=== PATIENT | female | born 1995 | race African-American/Black ===

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

== ENCOUNTER 2017-03-10 18:16 | Emergency (ER) | payer BC ==
[2017-03-10 18:44] VITALS: BP 100/61
--- NOTE | 2017-03-10 19:45 | UC ---
Homer Gupta Abhishek, scribed for Jose Luis Lewis MD on 03/10/17 at 1918 . Complaint Female HPI - HPI Summary HPI Summary: Pt is a 21 y/o F who presents to [facility] with suspected UTI. Pt reports she has been experiencing dysuria and back pain since this morning at approximately 0700. Back pain is in the lumbar back and is currently moderate, ranked 6/10. Treated with Azo PEANUT SORTER. Sx aggravated and alleviated by nothing. Additionally c/o fever, chills, and mild suprapubic abdominal pain. Denies vaginal discharge, diarrhea. PHx UTIs - current sx are similar to prior instances of UTI which were treated with bactrim. . LNMP 3 weeks ago and she is not concerned about STI. - History Of Current Complaint Chief Complaint: UCGU Stated Complaint: URINARY Time Seen by Provider: 03/10/17 19:12 Hx Obtained From: Patient Hx Last Menstrual Period: 3 wks ago Onset/Duration: Lasting Hours, Still Present Severity Currently: Moderate Pain Intensity: 6 Pain Scale Used: 0-10 Numeric Aggravating Factor(s): Nothing Alleviating Factor(s): Nothing Associated Signs And Symptoms: Positive: Back Pain Related Hx: Similar Episode/Dx as: - Prior UTIs - Allergies/Home Medications Allergies/Adverse Reactions: Allergies Allergy/AdvReac Type Severity Reaction Status Date / Time No Known Allergies Allergy Unverified 03/10/17 18:44 PMH/Surg Hx/FS Hx/Imm Hx - Additional Past Medical History Additional PMH: POSITIVE: Anemia NEGATIVE: HTN, DM, COPD, asthma GI/ History: Other Other GI/ History: UTI - Surgical History Surgical History: None - Family History Known Family History: Positive: Other - Anemia, thalassemia Negative: Cardiac Disease, Hypertension, Diabetes - Social History Alcohol Use: Occasionally Substance Use Type: Marijuana Smoking Status (MU): Current Some Day Smoker Type: Cigarettes Amount Used/How Often: "I don't know" Length of Time of Smoking/Using Tobacco: "a couple of months" Have You Smoked in the Last Year: Yes - Immunization History Most Recent Influenza Vaccination: Vaccination Up to Date: Yes Review of Systems Constitutional: Fever, Chills Skin: Negative Eyes: Negative ENT: Negative Respiratory: Negative Cardiovascular: Negative Gastrointestinal: Abdominal Pain - mild suprapubic Genitourinary: Dysuria Motor: Negative Neurovascular: Negative Musculoskeletal: Other: - Lumbar back pain Neurological: Negative Psychological: Negative All Other Systems Reviewed And Are Negative: Yes - Comments Additional Review of Systems Comments: NEGATIVE: Vaginal discharge, diarrhea. Physical Exam Triage Information Reviewed: Yes Vital Signs: Initial Vital Signs Temp 99.6 F 03/10/17 18:40 Pulse 79 03/10/17 18:40 Resp 18 03/10/17 18:40 BP 100/61 03/10/17 18:40 Pulse Ox 99 03/10/17 18:40 Vital Signs Reviewed: Yes - Additional Comments General: mildly ill appearing, mild pain distress Skin: warm, color reflects adequate perfusion, dry Head: normal Eyes: EOMI, JACKY ENT: normal Neck: supple, nontender Respiratory: CTA, breath sounds present Cardiovascular: RRR Abdomen: soft, mild suprapubic tenderness with no rebound Bowel: present Musculoskeletal: strength/ROM intact, tender over bilateral flanks in the back Neurological: normal, sensory/motor intact, A&O x3 Psychological: affect/mood appropriate Complaint Female Dx - Course Course Of Treatment: Pt medications reviewed. DENIES C/O STI. HAS UTI SX. UNABLE TO RUN UA DUE TO AZO USE. RX BACTRIM PO BID X 10 DAYS. URINE CX SENT. F/ U PMD. RETURN IF WORSE. - Differential Dx/Diagnosis Provider Diagnoses: DYSURIA AND B/L FLANK PAIN Discharge - Discharge Plan Condition: Stable Disposition: HOME Prescriptions: Sulfamethox/Trimethoprim DS* [Bactrim DS 800/160 TAB*] 1 tab PO BID #20 tab Patient Education Materials: Urinary Tract Infection in Women (ED) Referrals: Cortez Palumbo MD [Primary Care Provider] - Additional Instructions: FOLLOW UP WITH YOUR DOCTOR. GET RECHECKED FOR ANY WORSENING OF YOUR CONDITION OR QUESTIONS OR CONCERNS. The documentation as recorded by the Homer mejia Abhishek accurately reflects the service I personally performed and the decisions made by me, Jose Luis Lewis MD.
== END 2017-03-10 19:27 | disposition home or self-care (01) ==
LOC: UCEAST 18:16
DX: R30.0 Dysuria (principal); D64.9 Anemia, unspecified; F17.200 Nicotine dependence, unspecified, uncomplicated; R10.9 Unspecified abdominal pain
CPT/HCPCS: 81025; 87077; 87086; 99212; G0463

== ENCOUNTER 2017-03-11 01:28 | Observation (INO) | payer BC, OTHER ==
[2017-03-11] MEDS ORDERED: NS 0.9% 1000 ML* 2,000 ML IV ONE (01:56)
[2017-03-11 02:19] LABS: Hematocrit 39 % (35-47); Mean Corpuscular HGB Conc 34 g/dl (31-36); Mean Corpuscular Hemoglobin 29 pg (27-31); Mean Corpuscular Volume 86 fL (80-97); Mean Platelet Volume 9 um3 (7.4-10.4); Red Blood Count 4.49 10^6/ul (4.0-5.4); Red Cell Distribution Width 15 % (10.5-15); White Blood Count 13.2 10^3/ul (3.5-10.8)
[2017-03-11 02:32] LABS: ALT 49 U/L (7-52); AST 58 U/L (13-39); Albumin 4.7 g/dL (3.2-5.2); Alkaline Phosphatase 77 U/L (34-104); Anion Gap 10 mmol/L (2-11); BUN/Creatinine Ratio 11.1 (8-20); Blood Urea Nitrogen 12 mg/dL (6-24); C Reactive Protein 14.52 mg/L (< 5.00); CO2 Carbon Dioxide 23 mmol/L (22-32); Calcium 9.9 mg/dL (8.6-10.3); Chloride 103 mmol/L (101-111); EGFR African American 84.1 (>60); EGFR Non-African American 65.4 (>60); Globulin 2.8 g/dL (2-4); Glucose 106 mg/dL (70-100); Lipase 16 U/L (11.0-82.0); Potassium 3.4 mmol/L (3.5-5.0); Sodium 136 mmol/L (133-145); Total Protein 7.5 g/dL (6.4-8.9)
[2017-03-11] MEDS ORDERED: cefTRIAXone VIAL(*) 1,000 MG VIAL IVPB ONE (03:01)
[2017-03-11] MEDS ORDERED: Ondansetron INJ* 2 MG/ML VIAL IV ONE (03:03)
[2017-03-11] MEDS ORDERED: Acetaminophen TAB* 325 MG ONE (03:22)
[2017-03-11] MEDS ORDERED: Acetaminophen TAB* 325 MG PO ONE (03:25)
[2017-03-11] MEDS ORDERED: Iohexol 300* (CONTRAST) 10 ML SDV IV ONE (03:43)
[2017-03-11 04:51] LABS: Urine Bacteria Absent (Absent); Urine Bilirubin Negative (Negative); Urine Glucose Negative (Negative); Urine Nitrite Positive (Negative)
[2017-03-11] MEDS: NS 0.9% 1000 ML* 1,000 ML IV SCH ×2 (06:41→18:07)
--- NOTE | 2017-03-11 06:54 | ED ---
Jonah Gupta Benjamin, scribed for Vitor South MD on 03/11/17 at 0250 . GI/ HPI - HPI Summary HPI Summary: 21yo female who was seen at earlier today for bilateral flank pain. Pt was dc ed with abx awfter UTI was found. Symptoms worsened and pt developed fever. Pt was still in pain, felt dizzy and had vomited at home after discharge, so returns to ED. PMHx of anemia. - History of Current Complaint Chief Complaint: EDFlankPain Time Seen by Provider: 03/11/17 01:55 Stated Complaint: POSS KIDNEY INFECTION/DIZZY Hx Obtained From: Patient, Family/Corporate Quality Engineer - father Hx Last Menstrual Period: 3 wks ago Onset/Duration: Started Days Ago - 1 day ago, Still Present Timing: Constant Severity: Severe Current Severity: Severe Pain Intensity: 9 Location of Pain: Flank - bilateral Associated Signs and Symptoms: Positive: Back Pain, Dizziness, Nausea, Vomiting , Fever, Flank Pain - Allergy/Home Medications Allergies/Adverse Reactions: Allergies Allergy/AdvReac Type Severity Reaction Status Date / Time No Known Allergies Allergy Unverified 03/10/17 18:44 PMH/Surg Hx/FS Hx/Imm Hx Endocrine/Hematology History: Reports: Hx Anemia Denies: Hx Diabetes, Hx Thyroid Disease Cardiovascular History: Denies: Hx Hypertension Respiratory History: Denies: Hx Asthma, Hx Chronic Obstructive Pulmonary Disease (COPD) GI History: Denies: Hx Ulcer Musculoskeletal History: Reports: Other Musculoskeletal History - osteopenia Denies: Hx Rheumatoid Arthritis, Hx Osteoporosis Psychiatric History: Reports: Hx Eating Disorder - anorexia Infectious Disease History: No Infectious Disease History: Denies: Hx Clostridium Difficile, Hx Hepatitis, Hx Human Immunodeficiency Virus (HIV), Hx of Known/Suspected MRSA, Hx Shingles, Hx Tuberculosis, Hx Known/ Suspected VRE, Hx Known/Suspected VRSA, History Other Infectious Disease, Traveled Outside the [place] in Last 30 Days - Family History Known Family History: Positive: Other - Anemia, thalassemia Negative: Cardiac Disease, Hypertension, Diabetes Family History: no reported medical, cardio, vascular issues in family lineage - Social History Occupation: Student Alcohol Use: Occasionally Hx Substance Use: Yes Substance Use Type: Reports: Marijuana Hx Tobacco Use: Yes Smoking Status (MU): Current Some Day Smoker Type: Cigarettes Amount Used/How Often: "I don't know" Length of Time of Smoking/Using Tobacco: "a couple of months" Have You Smoked in the Last Year: Yes Review of Systems All Other Systems Reviewed And Are Negative: Yes Physical Exam - Summary Physical Exam Summary: Appearance: Ill-Appearing, in moderate pain distress, well nourished. Positive rigors. Skin: warm to touch, skin color reflects adequate perfusion, dry, no acute skin lesions Head Exam: Normal Eye Exam: EOMI, PERRL, conjunctiva clear ENT: pharynx nml, TM nml Neck exam: Supple, nontender Respiratory Exam: CTA, breath sounds present, no rales, no rhonchi, no wheezes Cardiovascular Exam: Tachycardia, S1, S2, No Murmur, No rub, No gallops, pulses symmetrical Abdomen Description: Diffuse abdominal tenderness. Bilateral flank tenderness. Soft, no guarding, no rebound, nondistended, no organomegaly Bowel Sounds: Present Musculoskeletal: Normal, Strength/ROM Intact Neurological Exam: nml, sens/motor intact, A&Ox3, no cerebellar dysfunction Psychological Exam: affect/mood appropriate Triage Information Reviewed: Yes Vital Signs On Initial Exam: Initial Vitals Temp Pulse Resp BP Pulse Ox 100.5 F 116 20 82/49 98 03/11/17 01:49 03/11/17 01:49 03/11/17 01:49 03/11/17 01:49 03/11/17 01:49 Vital Signs Reviewed: Yes - [place] Coma Scale Coma Scale Total: 15 Diagnostics - Vital Signs Vital Signs Temp Pulse Resp BP Pulse Ox 03/11/17 01:49 100.5 F 116 20 82/49 98 - Laboratory Lab Results: Lab Results 03/11/17 03/11/17 03/11/17 Range/Units 02:02 02:02 02:02 WBC 13.2 H (3.5-10.8) 10^3/ul RBC 4.49 (4.0-5.4) 10^6/ul Hgb 13.0 (12.0-16.0) g/dl Hct 39 (35-47) % MCV 86 (80-97) fL MCH 29 (27-31) pg MCHC 34 (31-36) g/dl RDW 15 (10.5-15) % Plt Count 322 (150-450) 10^3/ul MPV 9 (7.4-10.4) um3 INR (Anticoag Therapy) 0.97 (0.89-1.11) Sodium 136 (133-145) mmol/L Potassium 3.4 L (3.5-5.0) mmol/L Chloride 103 (101-111) mmol/L Carbon Dioxide 23 (22-32) mmol/L Anion Gap 10 (2-11) mmol/L BUN 12 (6-24) mg/dL Creatinine 1.08 H (0.51-0.95) mg/dL Est GFR ( Amer) 84.1 (>60) Est GFR (Non-Af Amer) 65.4 (>60) BUN/Creatinine Ratio 11.1 (8-20) Glucose 106 H (70-100) mg/dL Lactic Acid (0.5-2.0) mmol/L Calcium 9.9 (8.6-10.3) mg/dL Total Bilirubin 0.80 (0.2-1.0) mg/dL AST 58 H (13-39) U/L ALT 49 (7-52) U/L Alkaline Phosphatase 77 (34-104) U/L C-Reactive Protein 14.52 H (< 5.00) mg/L Total Protein 7.5 (6.4-8.9) g/dL Albumin 4.7 (3.2-5.2) g/dL Globulin 2.8 (2-4) g/dL Albumin/Globulin Ratio 1.7 (1-3) Lipase 16 (11.0-82.0) U/L Beta HCG, Quant < 0.60 mIU/mL 03/11/17 Range/Units 02:02 WBC (3.5-10.8) 10^3/ul RBC (4.0-5.4) 10^6/ul Hgb (12.0-16.0) g/dl Hct (35-47) % MCV (80-97) fL MCH (27-31) pg MCHC (31-36) g/dl RDW (10.5-15) % Plt Count (150-450) 10^3/ul MPV (7.4-10.4) um3 INR (Anticoag Therapy) (0.89-1.11) Sodium (133-145) mmol/L Potassium (3.5-5.0) mmol/L Chloride (101-111) mmol/L Carbon Dioxide (22-32) mmol/L Anion Gap (2-11) mmol/L BUN (6-24) mg/dL Creatinine (0.51-0.95) mg/dL Est GFR ( Amer) (>60) Est GFR (Non-Af Amer) (>60) BUN/Creatinine Ratio (8-20) Glucose (70-100) mg/dL Lactic Acid 2.5 H* (0.5-2.0) mmol/L Calcium (8.6-10.3) mg/dL Total Bilirubin (0.2-1.0) mg/dL AST (13-39) U/L ALT (7-52) U/L Alkaline Phosphatase (34-104) U/L C-Reactive Protein (< 5.00) mg/L Total Protein (6.4-8.9) g/dL Albumin (3.2-5.2) g/dL Globulin (2-4) g/dL Albumin/Globulin Ratio (1-3) Lipase (11.0-82.0) U/L Beta HCG, Quant mIU/mL Result Diagrams: 03/11/17 02:02 03/11/17 02:02 Lab Statement: Any lab studies that have been ordered have been reviewed, and results considered in the medical decision making process. - CT CT A/P CT Interpretation Completed By: Radiologist - Small pericholecystic fluid, no renal findings Re-Evaluation - Re-Evaluation First Eval Re-Evaluation Time: 04:33 Change: Improved - Pt states pain has improved, pt looks much better, however still reports dizziness. GIGU Course/Dx - Course Course Of Treatment: Reviewed pts medication and allergy lists. Blood pressure noted. - Diagnoses Provider Diagnoses: UTI (urinary tract infection), Sepsis Discharge - Discharge Plan Condition: Fair Disposition: ADMITTED TO [facility] The documentation as recorded by the Jonah mejia Benjamin accurately reflects the service I personally performed and the decisions made by Akosua castillo Afoma Frances, MD.
[2017-03-11] MEDS ORDERED: oxyCODONE/Acetamin 5/325 MG* TAB PO PRN (07:55)
[2017-03-11] MEDS ORDERED: Ondansetron INJ* 2 MG/ML VIAL IV PRN (07:55)
[2017-03-11] MEDS ORDERED: NS 0.9% 1000 ML* 1,000 ML IV SCH (08:00)
--- NOTE | 2017-03-11 08:15 | RAD ---
CLINICAL HISTORY: Flank pain COMPARISON: None TECHNIQUE: Multiple contiguous axial CT scans were obtained of the abdomen and pelvis after the administration of intravenous contrast. Coronal and sagittal multiplanar reformations are submitted for review. Oral contrast was not administered. Delayed images were obtained through the abdomen and pelvis. FINDINGS: Evaluation is limited due to the absence of oral contrast and the paucity of intraperitoneal fat. LUNG BASES: The lung bases are clear. LIVER: There is mild periportal edema BILE DUCTS: There is no intrahepatic or extrahepatic biliary dilatation. GALLBLADDER: There is a trace amount of pericholecystic fluid. PANCREAS: The pancreas is normal, without mass or ductal dilatation. SPLEEN: Normal in size and appearance. UPPER GI TRACT: Evaluation of the gastrointestinal tract is limited by incomplete gastric distention. The upper GI tract is unremarkable. SMALL BOWEL AND MESENTERY: The small bowel is normal in contour, course, and caliber. There is no obstruction or dilatation. COLON: The colon is normal in contour, course, caliber. There is no pericolonic inflammatory change. ADRENALS: Normal bilaterally. KIDNEYS: The kidneys are normal in shape, size, contour, and axis. There is no hydronephrosis or nephrolithiasis. BLADDER: The bladder is smooth in contour. PELVIC ORGANS: The uterus and adnexa are grossly normal for technique. AORTA: The aorta is normal. IVC: Unremarkable LYMPH NODES: There is no lymphadenopathy by size criteria. ABDOMINAL WALL: There is no evidence for abdominal wall hernia. BONES AND SOFT TISSUES: The bones and soft tissues are unremarkable. OTHER: There is a trace amount of free fluid within the cul-de-sac measuring simple fluid in attenuation. IMPRESSION: 1. MILD PERIPORTAL EDEMA. 2. TRACE AMOUNT OF PERICHOLECYSTIC FLUID. 3. TRACE AMOUNT OF FREE FLUID WITHIN THE PELVIS. THIS MAY BE PHYSIOLOGIC WITHIN A REPRODUCTIVE AGE FEMALE.
--- NOTE | 2017-03-11 08:19 | RAD ---
INDICATION: Hydronephrosis COMPARISON: CT March 11, 2017 TECHNIQUE: Longitudinal and transverse scans of the kidneys were obtained. FINDINGS: Kidneys: The kidneys are normal in size and echogenicity. No renal masses, calculi, or hydronephrosis is seen. The right kidney measures 10.2 x 5.1 x 5.7 cm and the left kidney 9.7 x 5.8 x 5.5 cm. Other: None IMPRESSION: NORMAL STUDY.
[2017-03-11] MEDS: Acetaminophen TAB* 325 MG PO PRN ×3 (09:54→20:49)
--- NOTE | 2017-03-11 10:46 | HP ---
CC: Dr. Palumbo * HISTORY AND PHYSICAL: DATE OF ADMISSION: 03/11/17 PRIMARY CARE PROVIDER: Dr. Palumbo. CHIEF COMPLAINT: Fever, dysuria. HISTORY OF PRESENT ILLNESS: Devi Rosario is a 21-year-old female with history of frequent UTIs, who presented to the hospital complaining of fevers for 24 hours, dysuria symptoms for 24 hours. The patient also stated that she was dizzy when she was standing up. She came into the ED vomiting with systolic pressures in the 70s. She started Bactrim approximately 8 hours prior to her coming to the ED. She came into the hospital, was diagnosed of sepsis with source being UTI. She complains of bilateral flank pain, left more than right. A suspicion of at least left-sided pyelonephritis is made. She is going to be placed for overnight observation with a diagnosis of sepsis due to pyelonephritis. PAST MEDICAL HISTORY: 1. History of anorexia in the past. 2. History of hospitalization in July of 2016 for "viral infection." At that point, she was noted to have anemia and transaminitis. MEDICATIONS: Include Bactrim DS 1 tablet p.o. b.i.d. started last night. ALLERGIES: No known drug allergies. FAMILY HISTORY: The patient's dad and her brother are healthy. Mom with history of hypertension and thalassemia. SOCIAL HISTORY: The patient smokes approximately half a pack a day. She drinks alcohol 3 times a week and she states that they are usually a couple of beers at a time. 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 She stated that due to problems with ongoing infections for the past several months, she stopped going to school and she is planning to begin school next at the fall of 2017. She lives with her father. She has no children. REVIEW OF SYSTEMS: Please see history of present illness. All the remaining 11 systems were reviewed with the patient and were otherwise negative. PHYSICAL EXAMINATION GENERAL: The patient is a very pleasant 21-year-old female, who was in no acute distress. The patient is alert, awake, and oriented x3. VITAL SIGNS: Blood pressure currently 97/48, heart rate of 99 and regular, respiratory rate 19, oxygen saturation 96% on room air, temperature 103.6. HEENT: Head is atraumatic and normocephalic. Eyes, pupils are equal and reactive to light and accommodation. Oropharynx clear. Mucosa moist. NECK: Supple. No JVD. No bruits bilaterally. RESPIRATORY: Clear to auscultation bilaterally. CARDIOVASCULAR: Regular rate and rhythm. No murmurs. ABDOMEN: Soft, nontender. Bowel sounds present in all 4 quadrants. BACK: Evaluation of back, the patient has left-sided CVA tenderness to palpation. EXTREMITIES: There is no edema. Pulses are +2 bilaterally. No clubbing or cyanosis. NEURO EVALUATION: Speech is clear. Cranial nerves II through XII are grossly intact. Motor strength is 5/5 bilaterally. PSYCHIATRIC EVALUATION: Oriented x3 with no evidence of anxiety or depression. SKIN: On evaluation of the skin, no ecchymotic areas or rashes noted. DIAGNOSTIC STUDIES/LAB DATA: Included sodium of 136, potassium 3.4, chloride 103, carbon dioxide 23, BUN 12, creatinine 1.08. Liver function tests showed AST of 58, ALT of 49, alkaline phosphatase of 77, bilirubin of 0.8. C-reactive protein of 14.5. Total protein of 7.5, albumin of 4.7, globulin of 2.8. Beta HCG below 0.6. The patient's initial lactic acid was 2.5, repeat 2 hours later was 1.4. CBC: White blood cell count of 13.2, hemoglobin of 13.0, hematocrit of 39, and platelets of 322. CT of abdomen and pelvis was grossly unremarkable. That was a wet read from the overnight radiologist. We are awaiting official read. Renal ultrasound was performed. Once again a verbal report that I got from the ED physician was that there was no hydronephrosis, but the official read is still pending. ASSESSMENT AND PLAN: 1. Sepsis due to pyelonephritis on the left side by clinical evaluation. The patient is going to be continued on ceftriaxone that she already received in the emergency department. She received 3 L of intravenous hydration and boluses in the emergency department to concur her hypotension due to sepsis. Currently, her systolic pressures are in the 90s. I will continue intravenous saline at 125 mL an hour. The patient has acute renal failure with creatinine of 1.09 and elevation of AST. All of it, most likely related to sepsis. I will repeat the patient's liver function tests and creatinine levels in the morning. Blood cultures were obtained and urine cultures are pending at the time of dictation. 2. DVT prophylaxis. The patient is ambulatory. 3. The patient's code status is full. Her surrogate is her father. TIME SPENT: Approximately 55 minutes was spent on admission of this patient, more than half that time was spent [id number] with the patient during the interview and physical exam. [id number]/[facility] #: [id number] ROSE
[2017-03-11] MEDS ORDERED: Mouth Piece, Nicotine* 1 EACH CARTRIDGE INH ONE (14:57)
[2017-03-11] MEDS ORDERED: Nicotine GUM* 2 MG PO PRN (14:57)
[2017-03-11] MEDS: Nicotine Inhaler* 10 MG AMP INH PRN ×2 (15:24→18:07)
[2017-03-12] MEDS: Acetaminophen TAB* 325 MG PO PRN (00:44)
[2017-03-12] MEDS ORDERED: cefTRIAXone VIAL(*) 1,000 MG in NS 0.9% 50 ML* 50 ML IVPB SCH (04:00)
[2017-03-12] MEDS: NS 0.9% 1000 ML* 1,000 ML IV SCH (04:20)
[2017-03-12 05:07] LABS: Hematocrit 28 % (35-47); Hemoglobin 9.2 g/dl (12.0-16.0); Mean Corpuscular HGB Conc 33 g/dl (31-36); Mean Corpuscular Hemoglobin 29 pg (27-31); Mean Corpuscular Volume 86 fL (80-97); Mean Platelet Volume 9 um3 (7.4-10.4); Red Blood Count 3.21 10^6/ul (4.0-5.4); Red Cell Distribution Width 15 % (10.5-15); White Blood Count 9.7 10^3/ul (3.5-10.8)
[2017-03-12 05:23] LABS: BUN/Creatinine Ratio 6.7 (8-20); Calcium 7.8 mg/dL (8.6-10.3); EGFR African American 165.6 (>60); EGFR Non-African American 128.8 (>60); Globulin 2.1 g/dL (2-4); Potassium 3.1 mmol/L (3.5-5.0); Total Bilirubin 0.3 mg/dL (0.2-1.0); Total Protein 5.1 g/dL (6.4-8.9)
[2017-03-12] MEDS ORDERED: Nicotine PATCH 7 MG/24 HR* PATCH TRANSDERM SCH (09:00)
[2017-03-12 11:44] VITALS: BP 99/46
[2017-03-12] MEDS ORDERED: Nicotine Patch Removal NOTE PATCH OFF SCH (21:00)
--- NOTE | 2017-03-12 22:58 | DS ---
CC: Dr. Palumbo * DISCHARGE SUMMARY: DATE OF ADMISSION: 03/11/17 DATE OF DISCHARGE: 03/12/17 HOSPITAL COURSE: This 21-year-old woman presented with fever, dysuria, and left flank pain. She was also dizzy when she stood up. She had fevers at home. She was vomiting. Her systolic pressure was in the 70s, but I note that her BMI is 18 and I believe her blood pressures probably run 80 to 95 on a normal day for her. She states finally on day of discharge, her pain had nearly resolved. She ate breakfast well. Blood pressure was 83/40 at 3 a.m. and 100/ 58 at 7 a.m., 99/46 at 8 a.m. on the day of discharge. Final urine culture was greater than 100,000 staphylococcus saprophyticus, sensitivities are not routinely done on this organism. She will take a 6-day course of cefuroxime at home. FINAL DIAGNOSES: 1. Pyelonephritis. 2. Tobacco use disorder. DISCHARGE MEDICATIONS: 1. Cefuroxime 500 mg b.i.d. for 6 days. 2. Nicotine patch 7 mg per day, change daily. 3. Ibuprofen 600 mg every 6 hours p.r.n. 4. Acetaminophen 650 mg every 4 hours p.r.n. [id number]/[facility] #: [id number] ROSE
== END 2017-03-12 13:50 | disposition home or self-care (01) ==
LOC: ED 01:28 → MED 07:20
PROVIDERS: ADMIT Internal Medicine; ATTEND Internal Medicine
DX: A41.9 Sepsis, unspecified organism (principal); N12 Tubulo-interstitial nephritis, not specified as acute or chronic; Z88.1 Allergy status to other antibiotic agents; Z88.2 Allergy status to sulfonamides; F17.210 Nicotine dependence, cigarettes, uncomplicated
CPT/HCPCS: 36415; 74177; 76775; 80053; 81003; 81015; 83605; 83690; 84702; 85025; 85027; 85610; 86140; 96361; 96365; 96366; 96375; 96376; 99284; 99406; A9270-GY; G0378; J0696; J2405; Q9967

== ENCOUNTER 2017-03-12 18:35 | Observation (INO) | payer BC, OTHER ==
[2017-03-12] MEDS ORDERED: Ciprofloxacin TAB* 500 MG PO ONE (22:03)
[2017-03-12] MEDS ORDERED: diPHENhydraMINE PO* 50 MG PO ONE (22:18)
[2017-03-12] MEDS ORDERED: Acetaminophen TAB* 325 MG PO ONE (22:22)
[2017-03-12] MEDS ORDERED: NS 0.9% 1000 ML* 1,000 ML IV ONE ×2 (22:31→23:52)
--- NOTE | 2017-03-12 22:35 | ED ---
GI/ HPI - HPI Summary HPI Summary: Patient presents to the ED with CC of itching after taking Cefuroxime this afternoon. (patient stated she had bactrim prior to the allergic reaction - this was cleared up after she received a dose of cipro in the ED) She has been seen 3 times in the past 3 days including an admission to the floor for complaints of UTI and back pain symptoms. She was seen in the and given bactrim rx for possible UTI. They were unable to run the urinalysis d/t patient taking azo. Cultures were obtained and grew out staphylococcus saprophyticus. She returned to ED within 24 hours stating she had worsening back pain and vomited at home. Denied fever at the time. She was admitted to [facility] and discharged this morning. During her treatment at [facility] she was given Rocephin 2g IV and discharged home with rx for Cipro. Today, she returns with "itchiness" all over since taking the medication. She has taken this medication previously without problems. On arrival, she states she began to feel sick and notes to "gurgling" in her abdomen but denies N/V/C/D. She continues to have urinary symptoms but denies back pain. On arrival temp is 99.2 then 3 hours after arrival is at 101.3 and shortly after a 103.0. Denies OLSON. Denies sweats or chills. - History of Current Complaint Chief Complaint: EDAllergicReaction Time Seen by Provider: 03/12/17 21:36 Stated Complaint: ALLERGIC REACTION Hx Obtained From: Patient Hx Last Menstrual Period: 3 wks ago Onset/Duration: Started Days Ago Timing: Constant Severity: Moderate Current Severity: Moderate Pain Intensity: 0 Pain Characteristics: Unable to describe Pain Radiates to: Flank - previous, none currently Associated Signs and Symptoms: Positive: Flank Pain, Chills Alleviating Factor(s): Nothing - Additional Pertinent History Primary Care Physician: RINA - Allergy/Home Medications Allergies/Adverse Reactions: Allergies Allergy/AdvReac Type Severity Reaction Status Date / Time Sulfamethoxazole Allergy See Comment Verified 03/12/17 22:10 w/Trimethoprim [From Bactrim] PMH/Surg Hx/FS Hx/Imm Hx Previously Healthy: Yes Endocrine/Hematology History: Reports: Hx Anemia Denies: Hx Diabetes, Hx Thyroid Disease Cardiovascular History: Denies: Hx Hypertension Respiratory History: Denies: Hx Asthma, Hx Chronic Obstructive Pulmonary Disease (COPD) GI History: Denies: Hx Ulcer History: Denies: Hx Dialysis, Hx Renal Disease Musculoskeletal History: Reports: Other Musculoskeletal History - osteopenia Denies: Hx Rheumatoid Arthritis, Hx Osteoporosis Sensory History: Denies: Hx Contacts or Glasses, Hx Hearing Aid Opthamlomology History: Denies: Hx Contacts or Glasses Psychiatric History: Reports: Hx Eating Disorder - anorexia - Immunization History Hx Pertussis Vaccination: No Immunizations Up to Date: Unable to Obtain/Confirm Infectious Disease History: Yes Infectious Disease History: Denies: Hx Clostridium Difficile, Hx Hepatitis, Hx Human Immunodeficiency Virus (HIV), Hx of Known/Suspected MRSA, Hx Shingles, Hx Tuberculosis, Hx Known/ Suspected VRE, Hx Known/Suspected VRSA, History Other Infectious Disease, Traveled Outside the [place] in Last 30 Days - Family History Known Family History: Positive: None, Other - Anemia, thalassemia Negative: Cardiac Disease, Hypertension, Diabetes Family History: no reported medical, cardio, vascular issues in family lineage - Social History Occupation: Unemployed Lives: With Family Alcohol Use: Occasionally Hx Substance Use: Yes Substance Use Type: Reports: Marijuana Hx Tobacco Use: Yes Smoking Status (MU): Light Every Day Tobacco Smoker Type: Cigarettes Amount Used/How Often: "I don't know" Length of Time of Smoking/Using Tobacco: "a couple of months" Have You Smoked in the Last Year: Yes Review of Systems Positive: Fever, Chills, Fatigue, Skin Diaphoresis Eyes: Negative Cardiovascular: Negative Respiratory: Negative Positive: Other - feels "funny" - unable to describe Positive: see HPI, burning, dysuria, frequency, flank pain Musculoskeletal: Negative Skin: Negative Positive: Weakness Psychological: Normal All Other Systems Reviewed And Are Negative: Yes Physical Exam Triage Information Reviewed: Yes Vital Signs On Initial Exam: Initial Vitals Temp Pulse Resp BP Pulse Ox 99.9 F 109 18 132/75 100 03/12/17 18:55 03/12/17 18:55 03/12/17 18:55 03/12/17 18:55 03/12/17 18:55 Vital Signs Reviewed: Yes Appearance: Positive: Ill-Appearing Skin: Positive: Warm, Skin Color Reflects Adequate Perfusion Head/Face: Positive: Normal Head/Face Inspection Neck: Positive: Supple, No Lymphadenopathy Respiratory/Lung Sounds: Positive: Clear to Auscultation, Breath Sounds Present Cardiovascular: Positive: Normal, RRR, Pulses are Symmetrical in both Upper and Lower Extremities Abdomen Description: Positive: Nontender, No Organomegaly, Soft Bowel Sounds: Positive: Present Musculoskeletal: Positive: Strength/ROM Intact Neurological: Positive: Sensory/Motor Intact, Alert, Oriented to Person Place, Time, Speech Normal Psychiatric: Positive: Normal Diagnostics - Vital Signs Vital Signs Temp Pulse Resp BP Pulse Ox 03/12/17 21:50 101.3 F 03/12/17 18:55 99.9 F 109 18 132/75 100 - Laboratory Result Diagrams: 03/12/17 22:43 03/12/17 22:43 Lab Statement: Any lab studies that have been ordered have been reviewed, and results considered in the medical decision making process. GIGU Course/Dx - Course Course Of Treatment: On arrival temp is 99.2 then 3 hours after arrival is at 101.3 and shortly after a 103.0. Denies OLSON. Denies sweats or chills. She is given Cipro 500mg prior to third check of temp. After temp reached 103, tylenol given and labs drawn including blood cultures. 14.5 WBC. She is feeling more ill than when she was discharged per patient. UA shows no acute infection, but patient has been on 3 different abx x 3 days. Cefuroxime discontinued based on her recent possible reaction with the medication. Benadryl 50mg given IV. Dr. Barreto called who agrees to admit patient based on worsening symptoms and not improving with PO antibiotics. Patient made aware who is ok with plan. Cetriaxone given in ED. 2L fluids given. Patient is admitted to [facility] [place]. - Diagnoses Differential Diagnoses - Female: Pyelonephritis, Other - sepsis, UTI Provider Diagnoses: Fever Discharge - Discharge Plan Condition: Stable Disposition: ADMITTED TO [facility]
[2017-03-12 22:42] LABS: Urine Bacteria Absent (Absent); Urine Bilirubin Negative (Negative); Urine Glucose Negative (Negative); Urine Nitrite Negative (Negative)
[2017-03-12 22:56] LABS: Hematocrit 33 % (35-47); Hemoglobin 10.9 g/dl (12.0-16.0); Mean Corpuscular HGB Conc 33 g/dl (31-36); Mean Corpuscular Hemoglobin 29 pg (27-31); Mean Corpuscular Volume 87 fL (80-97); Mean Platelet Volume 9 um3 (7.4-10.4); Red Blood Count 3.77 10^6/ul (4.0-5.4); Red Cell Distribution Width 15 % (10.5-15); White Blood Count 14.5 10^3/ul (3.5-10.8)
[2017-03-12 23:10] LABS: Albumin 3.6 g/dL (3.2-5.2); BUN/Creatinine Ratio 7.8 (8-20); C Reactive Protein 61.72 mg/L (< 5.00); Calcium 8.6 mg/dL (8.6-10.3); EGFR African American 153.7 (>60); EGFR Non-African American 119.5 (>60); Globulin 2.4 g/dL (2-4); Total Bilirubin 0.4 mg/dL (0.2-1.0)
[2017-03-12] MEDS ORDERED: Ondansetron ODT TAB* 4 MG SL ONE (23:53)
[2017-03-12] MEDS ORDERED: Ondansetron INJ* 2 MG/ML VIAL IV ONE (23:54)
[2017-03-13] MEDS ORDERED: cefTRIAXone(*) 2 GM ADDV.VIAL IVPB ONE (00:03)
[2017-03-13] MEDS ORDERED: Ondansetron INJ* 2 MG/ML VIAL IV PRN (00:14)
[2017-03-13] MEDS ORDERED: LORazepam INJ* 2 MG/ML 1 ML VIAL IV PUSH PRN (00:14)
[2017-03-13] MEDS ORDERED: diPHENhydraMINE IV* 25 MG in NS 0.9% 50 ML* 50 ML IVPB PRN (00:14)
[2017-03-13] MEDS ORDERED: NS 0.9% 1000 ML* 1,000 ML IV SCH ×2 (00:15→13:37)
[2017-03-13] MEDS ORDERED: HYDROcodone/ACETAMIN 5-325 MG* 1 TAB PO PRN (00:17)
[2017-03-13] MEDS: Potassium Chlor TAB* 20 MEQ TAB.ER PO SCH ×2 (02:01→05:29)
[2017-03-13] MEDS: Acetaminophen TAB* 325 MG PO PRN ×3 (04:23→22:06)
--- NOTE | 2017-03-13 04:33 | HP ---
CC: Dr. Palumbo * HISTORY AND PHYSICAL: DATE OF ADMISSION: 03/13/17 PRIMARY CARE PROVIDER: Dr. Palumbo. CHIEF COMPLAINT: Itching. HISTORY OF PRESENT ILLNESS: Ms. Rosario is a 21-year-old female who was hospitalized from 03/11/17 through 03/12/17 with a diagnosis of left-sided pyelonephritis. During the hospitalization, the patient's urine culture grew Staphylococcus saprophyticus. She received ceftriaxone while in the hospital and discharged on Ceftin to complete six more days of therapy. The patient states that on the evening of , she took a dose of a Ceftin around 5 p.m. A few hours after that, she noticed that she began to have diffuse body itching, tingling diffusely, she felt as if her chest was somewhat tight and her vision was somewhat blurry. She is very uncomfortable due to the itching especially in her feet. She does state that she received Benadryl in the emergency room and that helped; however , she is very uncomfortable still. The patient reportedly has never had Ceftin or cephalosporin per the patient's father and this does appear to be her first exposure between hospitalization receiving IV ceftriaxone and being discharged on the Ceftin. The patient states that she feels like skin is somewhat red and splotchy. In addition to these complaints, she does complain of headache that developed while she was waiting in the waiting room, as well as some neck stiffness, though she is able to move about the bed without any discomfort. In terms of the pyelonephritis, she continues to have intermittent left flank pain. She still complains of dysuria, but does state that it is better than it had been. The patient had been afebrile through the bulk of her hospitalization ; however, the patient's father states that prior to returning to the emergency room, she did develop fever again at home. PAST MEDICAL HISTORY: 1. History of anorexia. 2. Hospitalization in July 2016 for a viral illness with resolving anemia and transaminitis. MEDICATIONS: Ceftin 500 mg p.o. b.i.d. to complete 6 days worth of therapy. ALLERGIES: CEPHALOSPORINS. FAMILY HISTORY: The patient's dad and brother are healthy. Mom has a history of hypertension and thalassemia. SOCIAL HISTORY: The patient smokes approximately half a pack per day. She drinks alcohol 3 times a week. 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 She lives with her father. She has no children. REVIEW OF SYSTEMS: Complete 11-system review of systems is obtained. Pertinent positives and negatives are as per HPI and otherwise negative. PHYSICAL EXAMINATION GENERAL: The patient is a well-developed, thin, young female, lying in the stretcher, appearing anxious and squirming all over the bed. VITAL SIGNS: Blood pressure 132/75, pulse 109, respirations 18, temp 99.9, O2 sat 100% on room air, and T-max of 101.3. HEENT: Pupils are equal, they are round. Extraocular muscles are intact. Oropharynx is clear. Oral mucosa is slightly dry. There is no submandibular, cervical, or supraclavicular adenopathy. Thyroid is not enlarged. No thyroid nodules are noted. PULMONARY: Lungs are clear to auscultation bilaterally. CARDIAC: Normal S1, S2. Regular rate and rhythm. I do not appreciate any murmurs. There is no lower extremity edema. ABDOMEN: Bowel sounds are present. Abdomen is soft, nontender, nondistended. MUSCULOSKELETAL: There is no cyanosis or clubbing of the digits. There is full active range of motion of all 4 extremities. SKIN: Hot. It is dry. There is faint erythematous splotchiness to her arms and legs most notably. NEURO: Cranial nerves II through XII appear to be grossly intact. Sensation is intact to light touch throughout. Strength is 5/5 and symmetric in both upper and lower extremities bilaterally. The patient has a negative Kernig's and Brudzinski sign. PSYCH: The patient is alert. She is oriented x3. She does appear anxious at this point. DIAGNOSTIC STUDIES/LAB DATA: WBC 14.5, hemoglobin 10.9, hematocrit 33, and platelets 229. Sodium 138, potassium 3.0, chloride 108, CO2 20, BUN is 5, creatinine 0.64, glucose 100, lactic acid 1.3, calcium 8.6. Bilirubin 0.4, AST 70, ALT 95, alk phos 68, CRP 61.72, albumin 3.6. Urinalysis reveals a specific gravity of 1.003, trace ketones, 1+ blood, negative nitrites, negative leukocyte esterase, trace wbc, absent bacteria. ASSESSMENT AND PLAN: Ms. Rosario is a 21-year-old female who was hospitalized from 03/11/17 through earlier 03/12/17 with complaints of fever and left flank pain and was found to have probable left-sided pyelonephritis with Staphylococcus saprophyticus. She was treated while under observation in the hospital with ceftriaxone and transition to Ceftin on discharge. The patient does appear to have had now an allergic reaction to cephalosporin class of medications. This has been added to her allergy list. I did inform both the patient and her father that she should not take medications out of this class. She will have Benadryl available for itching as well as Ativan for itching and anxiety related to the itching. In terms of treating the pyelonephritis now, she will be changed from cephalosporins to ciprofloxacin. She is febrile again. At this point, it is possible the fever she currently experience is related to the pyelonephritis that was diagnosed previously and she is just having residual fevers; however, the fever could also be related to the allergic reaction. At this point, the patient does by sepsis 2 criteria has severe sepsis with tachycardia, leukocytosis, hypotension, and elevated LFTs. By sepsis 3 criteria; however, the patient does not have sepsis. The patient has already received 2 L of IV fluid in the emergency room exceeding the 1500 mL of fluid needed to equate to 30 mL/kg of fluid for essential severe sepsis. Her lactic acid was negative. The patient's fever curve and leukocytosis will be monitored. 1. Transaminitis. The patient has had fluctuating LFTs in the past. In 2014 and 2015, her LFTs were normal. In July 2016, her LFTs were elevated. Her AST and ALT are still elevated now compared to admission on 03/11/17; however, her AST is lower than it was earlier on 03/12/17. The patient's ALT is higher now than it was previously. These will be followed tomorrow morning. 2. Anemia. The patient has been chronically anemic. Her hemoglobin on was normal at 13; however, I suspect she was hemoconcentrated at that time. Her H and H will be followed. The etiology of her anemia is not completely clear at this time. In July of 2016, her total iron was low; however, her ferritin was elevated, not indicating iron deficiency. 3. DVT prophylaxis. According to the Adult Thrombosis Prophylaxis Risk Factor Assessment Guide, the patient has a total risk factor score of 0, making her low risk. She will have ambulation as DVT prophylaxis. 8. Code status is full. TIME SPENT: Fifty-five minutes were spent admitting this patient. [id number]/[facility] #: [id number] ROSE
[2017-03-13] MEDS ORDERED: diPHENhydraMINE IV* 50 MG/ML 1 ml VIAL (BENADRYL) ONE (05:20)
[2017-03-13 06:00] LABS: Hematocrit 28 % (35-47); Hemoglobin 9.4 g/dl (12.0-16.0); Mean Corpuscular HGB Conc 34 g/dl (31-36); Mean Corpuscular Hemoglobin 29 pg (27-31); Mean Corpuscular Volume 86 fL (80-97); Mean Platelet Volume 9 um3 (7.4-10.4); Red Blood Count 3.25 10^6/ul (4.0-5.4); Red Cell Distribution Width 14 % (10.5-15); White Blood Count 12.7 10^3/ul (3.5-10.8)
[2017-03-13 06:17] LABS: Albumin 3.1 g/dL (3.2-5.2); BUN/Creatinine Ratio 6.8 (8-20); Calcium 7.6 mg/dL (8.6-10.3); EGFR African American 168.9 (>60); EGFR Non-African American 131.3 (>60); Globulin 2.1 g/dL (2-4); Potassium 3.3 mmol/L (3.5-5.0); Total Bilirubin 0.4 mg/dL (0.2-1.0); Total Protein 5.2 g/dL (6.4-8.9)
[2017-03-13] MEDS: Ciprofloxacin 400MG IVPREMIX(* 400 MG/200 ML BAG IVPB SCH ×2 (08:18→20:12)
[2017-03-13] MEDS: Nicotine PATCH 7 MG/24 HR* PATCH TRANSDERM SCH (08:21)
[2017-03-13 12:18] LABS: Urine Bacteria Absent (Absent); Urine Bilirubin Negative (Negative); Urine Glucose Negative (Negative); Urine Nitrite Negative (Negative)
--- NOTE | 2017-03-13 13:43 | PN ---
Subjective Date of Service: 03/13/17 Interval History: "I feel awful." Tired. Less itchy. Some headache, not usual for her. She is waitng for the acetaminophen to take effect. Objective Active Medications: Acetaminophen (Tylenol Tab*) 650 mg PO Q4H PRN PRN Reason: pain/fever Last Admin: 03/13/17 11:52 Dose: 650 mg Hydrocodone Bitart/Acetaminophen ([place] 5-325 Tab*) 1 tab PO Q4H PRN PRN Reason: PAIN Device (Nicotine Mouth Piece*) 1 each INH .USE WITH NICOTROL PRN PRN Reason: CRAVING Diphenhydramine HCl 25 mg/ (Sodium Chloride) 50.5 mls @ 101 mls/hr IVPB Q6H PRN PRN Reason: ITCHING Last Admin: 03/13/17 05:25 Dose: 101 mls/hr Ciprofloxacin/Dextrose (Cipro 400 Mg Ivpremix(*)) 400 mg in 200 mls @ 200 mls/ hr IVPB Q12H SANDY Last Admin: 03/13/17 08:18 Dose: 200 mls/hr Sodium Chloride (Ns 0.9% 1000 Ml*) 1,000 mls @ 50 mls/hr IV PER RATE [facility] Lorazepam (Ativan Inj*) 0.5 mg IV PUSH Q6H PRN PRN Reason: Anxiety/itching Nicotine (Nicotine Inhaler*) 10 mg INH Q2H PRN PRN Reason: CRAVING Nicotine (Nicotine Patch 7 Mg/24 Hr*) 1 patch TRANSDERM DAILY [facility] Last Admin: 03/13/17 08:21 Dose: Not Given Ondansetron HCl (Zofran Inj*) 4 mg IV Q6H PRN PRN Reason: NAUSEA Last Admin: 03/13/17 04:27 Dose: 4 mg Pharmacy Profile Note (Nicotine Patch Removal Note*) 1 note FOLLOW UP 2100 [facility] Vital Signs 03/13/17 03/13/17 03/13/17 00:15 00:30 01:00 Temperature 101.8 F Pulse Rate 109 106 Respiratory Rate Blood Pressure 76/52 106/70 105/67 (mmHg) O2 Sat by Pulse 100 100 Oximetry 03/13/17 03/13/17 03/13/17 01:05 01:15 01:55 Temperature 99.9 F 101.2 F 99.9 F Pulse Rate 99 99 Respiratory 18 18 Rate Blood Pressure 109/65 109/65 (mmHg) O2 Sat by Pulse 100 100 Oximetry 03/13/17 03/13/17 03/13/17 05:25 06:25 07:38 Temperature 99.3 F Pulse Rate 82 Respiratory 16 18 18 Rate Blood Pressure 110/55 (mmHg) O2 Sat by Pulse 99 Oximetry Oxygen Devices in Use Now: None Appearance: Alert, sitting up in bed. Looks uncomfortable. Eyes: No Scleral Icterus Respiratory: Symmetrical Chest Expansion and Respiratory Effort, Clear to Auscultation, Clear to Percussion Cardiovascular: NL Sounds; No Murmurs; No JVD, RRR, No Edema, - Extremities: No Edema, No Clubbing, Cyanosis, - Skin: No Rash or Ulcers, No Nodules or Sclerosis, - Neurological: Alert and Oriented x 3, NL Sensation Result Diagrams: 03/13/17 05:04 03/13/17 05:04 Assess/Plan/Problems-Billing Assessment: - Patient Problems (1) Pyelonephritis Current Visit: Yes Status: Acute Code(s): N12 - TUBULO-INTERSTITIAL NEPHRITIS, NOT SPCF ACUTE OR CHRONIC SNOMED Code(s): 79367054 Comment: Urine C&S 03/10 grew S. saprophyticus. Continue ciprofloxacin. CBC 03/14. (2) Transaminitis Current Visit: Yes Status: Acute Code(s): R74.0 - NONSPEC ELEV OF LEVELS OF TRANSAMNS & LACTIC ACID DEHYDRGNSE SNOMED Code(s): 642282670 Comment: Suspect one of her recent antibiotics: ceftriaxone, cefuroxime ( had 1 dose onely), TMP-SMX. Repeat CMP 03/14. (3) Headache Current Visit: Yes Status: Acute Code(s): R51 - HEADACHE SNOMED Code(s): 03067116 Comment: Likely related to her other illnesses.
[2017-03-13] MEDS: Nicotine Inhaler* 10 MG AMP INH PRN (18:56)
[2017-03-13] MEDS: Mouth Piece, Nicotine* 1 EACH CARTRIDGE INH PRN (18:56)
[2017-03-13] MEDS ORDERED: Nicotine Patch Removal NOTE FOLLOW UP SCH (21:00)
[2017-03-14 06:19] LABS: Hematocrit 28 % (35-47); Hemoglobin 9.4 g/dl (12.0-16.0); Mean Corpuscular HGB Conc 34 g/dl (31-36); Mean Corpuscular Hemoglobin 29 pg (27-31); Mean Corpuscular Volume 86 fL (80-97); Mean Platelet Volume 9 um3 (7.4-10.4); Red Blood Count 3.22 10^6/ul (4.0-5.4); Red Cell Distribution Width 15 % (10.5-15); White Blood Count 5.5 10^3/ul (3.5-10.8)
[2017-03-14 06:36] LABS: Albumin 3.2 g/dL (3.2-5.2); BUN/Creatinine Ratio 6.9 (8-20); Calcium 8.2 mg/dL (8.6-10.3); EGFR African American 172.2 (>60); EGFR Non-African American 133.9 (>60); Globulin 2.1 g/dL (2-4); Potassium 3.4 mmol/L (3.5-5.0); Total Bilirubin 0.3 mg/dL (0.2-1.0); Total Protein 5.3 g/dL (6.4-8.9)
[2017-03-14] MEDS: Nicotine PATCH 7 MG/24 HR* PATCH TRANSDERM SCH (08:07)
[2017-03-14] MEDS: Ciprofloxacin 400MG IVPREMIX(* 400 MG/200 ML BAG IVPB SCH (08:14)
[2017-03-14 08:19] VITALS: BP 112/69
--- NOTE | 2017-03-14 08:55 | DCNOTE ---
Subjective Date of Service: 03/14/17 Interval History: C/O being nervous about her condition, her prognosis, and going home. C/O legs numb earlier, not now. Flank pain nearly gone. Appetite OK. No more itching, no other c/o. Objective Active Medications: Acetaminophen (Tylenol Tab*) 650 mg PO Q4H PRN PRN Reason: pain/fever Last Admin: 03/13/17 22:06 Dose: 650 mg Hydrocodone Bitart/Acetaminophen ([place] 5-325 Tab*) 1 tab PO Q4H PRN PRN Reason: PAIN Last Admin: 03/13/17 14:00 Dose: 1 tab Ciprofloxacin (Cipro Tab*) 500 mg PO Q12HR [facility] Device (Nicotine Mouth Piece*) 1 each INH .USE WITH NICOTROL PRN PRN Reason: CRAVING Last Admin: 03/13/17 18:56 Dose: 1 each Diphenhydramine HCl 25 mg/ (Sodium Chloride) 50.5 mls @ 101 mls/hr IVPB Q6H PRN PRN Reason: ITCHING Last Admin: 03/13/17 05:25 Dose: 101 mls/hr Ciprofloxacin/Dextrose (Cipro 400 Mg Ivpremix(*)) 400 mg in 200 mls @ 200 mls/ hr IVPB Q12H [facility] Stop: 03/14/17 11:00 Last Admin: 03/14/17 08:14 Dose: 200 mls/hr Sodium Chloride (Ns 0.9% 1000 Ml*) 1,000 mls @ 50 mls/hr IV PER RATE [facility] Last Admin: 03/13/17 13:55 Dose: 50 mls/hr Lorazepam (Ativan Inj*) 0.5 mg IV PUSH Q6H PRN PRN Reason: Anxiety/itching Nicotine (Nicotine Inhaler*) 10 mg INH Q2H PRN PRN Reason: CRAVING Last Admin: 03/13/17 18:56 Dose: 10 mg Nicotine (Nicotine Patch 7 Mg/24 Hr*) 1 patch TRANSDERM DAILY [facility] Last Admin: 03/14/17 08:07 Dose: Not Given Ondansetron HCl (Zofran Inj*) 4 mg IV Q6H PRN PRN Reason: NAUSEA Last Admin: 03/13/17 04:27 Dose: 4 mg Pharmacy Profile Note (Nicotine Patch Removal Note*) 1 note FOLLOW UP 2100 [facility] Last Admin: 03/13/17 21:53 Dose: Not Given Vital Signs 03/13/17 03/13/17 03/13/17 14:00 15:04 15:30 Temperature 98.4 F Pulse Rate 88 Respiratory 16 16 Rate Blood Pressure 92/53 109/63 (mmHg) O2 Sat by Pulse 100 Oximetry 03/13/17 03/13/17 03/13/17 16:00 19:18 23:28 Temperature 98.6 F 98.7 F Pulse Rate 87 71 Respiratory 14 20 16 Rate Blood Pressure 111/72 105/64 (mmHg) O2 Sat by Pulse 100 100 Oximetry 03/14/17 03/14/17 02:45 07:44 Temperature 98.8 F 98.4 F Pulse Rate 69 72 Respiratory 16 18 Rate Blood Pressure 107/65 112/69 (mmHg) O2 Sat by Pulse 100 100 Oximetry Oxygen Devices in Use Now: None Appearance: Alert, sitting up in bed. In good spirits. Looks anxious but otherwise comfortable. Abdominal: NL Sounds; No Tenderness; No Distention, No Hepatosplenomegaly - No flank tenderness, - Extremities: No Edema, No Clubbing, Cyanosis, - Skin: No Rash or Ulcers, No Nodules or Sclerosis, - Neurological: Alert and Oriented x 3 Result Diagrams: 03/14/17 05:56 03/14/17 05:56 Assess/Plan/Problems-Billing Assessment: - Patient Problems (1) Pyelonephritis Current Visit: Yes Status: Acute Code(s): N12 - TUBULO-INTERSTITIAL NEPHRITIS, NOT SPCF ACUTE OR CHRONIC SNOMED Code(s): 87377570 Comment: Urine C&S 03/10 grew S. saprophyticus. Continue ciprofloxacin. WBC 5.5 on 03/14. (2) Transaminitis Current Visit: Yes Status: Acute Code(s): R74.0 - NONSPEC ELEV OF LEVELS OF TRANSAMNS & LACTIC ACID DEHYDRGNSE SNOMED Code(s): 435632183 Comment: Suspect one of her recent antibiotics: ceftriaxone, cefuroxime ( had 1 dose onely), TMP-SMX. CMP 03/14 improved. (3) Headache Current Visit: Yes Status: Acute Code(s): R51 - HEADACHE SNOMED Code(s): 39709492 Comment: Likely related to her other illnesses. Status and Disposition: Discharge now. Recommend fup CMP in 1-3 weeks.
[2017-03-14] MEDS: Nicotine Inhaler* 10 MG AMP INH PRN (09:44)
[2017-03-14] MEDS: Mouth Piece, Nicotine* 1 EACH CARTRIDGE INH PRN (09:44)
[2017-03-14] MEDS: Acetaminophen TAB* 325 MG PO PRN (10:16)
--- NOTE | 2017-03-14 20:27 | DS ---
CC: Dr. Palumbo DISCHARGE SUMMARY: DATE OF ADMISSION: 03/13/17 DATE OF DISCHARGE: 03/14/17 HISTORY OF PRESENT ILLNESS: This 21-year-old woman was discharged from the hospital after being mark ated for pyelonephritis. She had taken trimethoprim and sulfamethoxazole at home for a few days. S he got possibly a second dose of ceftriaxone in the hospital and was discharged to follow to comple te our treatment with cefuroxime 500 mg b.i.d. She picked up her prescription and took 1 tablet. Sh e developed itching. She may have had some shortness of breath. I am not sure she actually had hiv es or any rash. I suspect she was extremely anxious and scared even after being in the hospital a w hile and may have had hyperventilation. However, her liver function tests were mildly elevated. She was observed overnight. She was changed to ciprofloxacin. This was given intravenously. Her fever abated. Her flank tenderness has virtually resolved by the time of this dictation. She remained anx ious; however, she had no more itching. Her liver function tests slightly improved and were nearly n ormal at the time of discharge. She will take 6 more days of ciprofloxacin 500 mg b.i.d. I would recommend repeating her CMP in 1 t o 3 weeks. I would consider her allergic to either the SULFA CLASS or CEPHALOSPORIN CLASS of antibiotics, sadia yañez not both, although both will be listed in her chart as I cannot really be sure which my inclinat ion would be that of more likely the SULFA CLASS as she took that for a longer period of time and wo uld prime her for an allergy. FINAL DIAGNOSES: 1. Pyelonephritis with staphylococcus saprophyticus. 2. Drug reaction with mild transaminitis and pruritus. DISCHARGE MEDICATIONS: 1. Acetaminophen 650 mg every 4 hours p.r.n. 2. Ciprofloxacin 500 mg b.i.d. for 6 days. 3. Nicotine patch 7 mg daily. 4. Ibuprofen 600 mg every 6 hours p.r.n. [id number]/[facility] #: [id number]
[2017-03-14] MEDS ORDERED: Ciprofloxacin TAB* 500 MG PO SCH (21:00)
== END 2017-03-14 11:30 | disposition home or self-care (01) ==
LOC: ED 18:35 → MED 03-13 00:12
PROVIDERS: ADMIT Hospitalist; ATTEND Internal Medicine
DX: N10 Acute pyelonephritis (principal); B95.7 Other staphylococcus as the cause of diseases classified elsewhere; T50.995A Adverse effect of other drugs, medicaments and biological substances, initial encounter; L29.9 Pruritus, unspecified; R74.0 Nonspecific elevation of levels of transaminase and lactic acid dehydrogenase [LDH]; R10.10 Upper abdominal pain, unspecified; F17.210 Nicotine dependence, cigarettes, uncomplicated; D64.9 Anemia, unspecified
CPT/HCPCS: 36415; 80053; 81003; 81015; 83605; 85025; 86140; 87040; 99284; A9270-GY; G0378; J0696; J0744; J1200; J2405